=== PATIENT | female | born 2000 | race Caucasian/White ===

== ENCOUNTER 2023-05-02 10:47 | Emergency (ER) | payer OTHER, SELFPAY ==
[2023-05-02 11:09] LABS: Bilirubin Neg (Negative); Blood, Urine Negative (Negative); Clarity Clear (Clear); Glucose, Urine (Dipstick) Normal (Negative); Ketone, Urine Negative (Negative); Leukocyte Negative (Negative); Nitrite Negative (Negative); Protein, Urine (Dipstick) Negative (Neg-Trace); Urobilinogen Normal mg/dL (Less than 2)
[2023-05-02 11:21] LABS: Pregnancy Test - Urine (BHCG) Negative (Negative); Pregu Control Background? CLEAR/WHITE (CLR/WHITE); Pregu Control Bar Appear? YES (CONTROL BAR)
[2023-05-02 11:32] LABS: Bacteria/HPF Rare-Few HPF (None Seen); CAUTI Indications for Culture Dysuria,urgency,freq; RBC/HPF 0-3 HPF (0-3); Squamous Epithelial 0-3 HPF (0-3); WBC/HPF 0-3 HPF (0-3)
[2023-05-02 11:33] LABS: Urine Culture Reflex No No
== END 2023-05-02 11:53 | disposition home or self-care (01) ==
LOC: CSHERS 10:47
DX: R30.0 Dysuria (principal); R35.0 Frequency of micturition; F17.210 Nicotine dependence, cigarettes, uncomplicated
CPT/HCPCS: 81001; 81025; 87086; 99283